=== PATIENT | male | born 1945 | race American Indian/Alaskan Native ===

== ENCOUNTER 2018-03-01 09:53 | Outpatient (CLI) | payer MEDICARE | END 2018-03-01 09:54 | disposition home or self-care (01) | LOC: LAB 09:53 | PROVIDERS: ATTEND Internal Medicine | DX: E87.5 Hyperkalemia (principal); E11.9 Type 2 diabetes mellitus without complications; I10 Essential (primary) hypertension | CPT/HCPCS: 36415; 84132 ==

== ENCOUNTER 2018-10-23 13:47 | Inpatient (IN) | payer MEDICARE ==
--- NOTE | 2018-10-23 14:04 | Event Note ---
ED Screening Note Date of service: 10/23/18 Time: 13:58 ED Screening Note: This is a 73 y.o. M. that presents to the ER with tachycardia and BLE edema. PMH CHF & DM Patient reports SOB and cough occasionally. Denies recent travel out the Country. Patient states he road in the car for 3 hours to [place] for day. He wore compression hose. This initial assessment/diagnostic orders/clinical plan/treatment(s) is/are subject to change based on patients health status, clinical progression and re- assessment by fellow clinical providers in the ED. Further treatment and workup at subsequent clinical providers discretion. Patient/guardian urged not to elope from the ED as their condition may be serious if not clinically assessed and managed. Initial orders include: Labs
[2018-10-23 14:46] LABS: Basophils # (Auto) 0.1 K/mm3 (0.0-0.1); Basophils % (Auto) 0.8 % (0.0-1.8); Eosinophils # (Auto) 0.2 K/mm3 (0.0-0.4); Eosinophils % (Auto) 3.2 % (0.0-4.3); Hematocrit 40.4 % (35.5-45.6); Hemoglobin 13.1 gm/dl (11.8-15.2); Lymphocytes # (Auto) 1.1 K/mm3 (1.2-5.4); Mean Corpuscular HGB Conc 32 % (32-34); Mean Corpuscular Volume 93 fl (84-94); Monocytes # (Auto) 0.5 K/mm3 (0.0-0.8); Monocytes % (Auto) 7.9 % (0.0-7.3); Platelet Count 178 K/mm3 (140-440); Red Blood Count 4.35 M/mm3 (3.65-5.03)
--- NOTE | 2018-10-23 15:05 | Emergency Department Report ---
ED Shortness of Breath HPI - General Chief Complaint: Arrhythmia/Palpitations Stated Complaint: LEG SWOLLEN/ELEVATED HEART RATE Time Seen by Provider: 10/23/18 13:58 Source: patient Mode of arrival: Ambulatory Limitations: No Limitations - History of Present Illness Initial Comments: Patient is 73 years old male with history of congestive heart failure on Lasix 40 mg daily. Patient sent from Dr. Constantino office for evaluation of shortness of breath and cough for the last 3 days. Patient also complaining of bilateral lower extremity swelling. Patient denied any fever, chills or chest pain. MD Complaint: shortness of breath, cough - Related Data Home Medications Medication Instructions Recorded Confirmed Last Taken Metformin HCl [Metformin ER 1,000 mg PO DAILY 01/28/18 02/20/18 02/18/18 Gastric] 1 tab Saxagliptin HCl [Onglyza] 2.5 mg PO QDAY 01/28/18 02/20/18 02/19/18 1 tab Aspirin EC [Halfprin EC] 325 mg PO DAILY 02/20/18 02/20/18 02/19/18 1 tab Carvedilol [Coreg] 3.125 mg PO BID 02/20/18 02/20/18 02/19/18 1 tab Potassium Chloride [K-Dur] 20 meq PO QDAY 02/20/18 02/20/18 02/19/18 1 tab Previous Rx's Medication Instructions Recorded Last Taken Type Apixaban [Eliquis] 5 mg PO BID #60 tablet 02/01/18 02/17/18 Rx 1 tab Furosemide [Furosemide ORAL LIQ] 40 mg PO BID #60 ml 02/01/18 02/19/18 Rx 1 dose Lisinopril [Zestril TAB] 20 mg PO QDAY #30 tablet 02/01/18 02/19/18 Rx 1 tab Allergies Allergy/AdvReac Type Severity Reaction Status Date / Time No Known Allergies Allergy Verified 02/20/18 06:56 ED Review of Systems ROS: Stated complaint: LEG SWOLLEN/ELEVATED HEART RATE Other details as noted in HPI Comment: All other systems reviewed and negative Constitutional: denies: chills, fever Respiratory: cough, orthopnea, shortness of breath, SOB with exertion, SOB at rest. denies: wheezing Cardiovascular: dyspnea on exertion, orthopnea, paroxysmal nocturnal dyspnea. denies: chest pain, palpitations Gastrointestinal: denies: abdominal pain, nausea, vomiting ED Past Medical Hx - Past Medical History Previous Medical History?: Yes Hx Hypertension: Yes Hx CVA: No Hx Heart Attack/AMI: No Hx Congestive Heart Failure: No Hx Diabetes: Yes Hx Deep Vein Thrombosis: Yes Hx Pulmonary Embolism: Yes Hx GERD: No Hx Liver Disease: No Hx Renal Disease: No Hx Sickle Cell Disease: No Hx Arthritis: No Hx Headaches / Migraines: No Hx Seizures: No Hx Kidney Stones: No Hx Psychiatric Treatment: No Hx Asthma: No Hx COPD: No Hx Tuberculosis: No Hx Dementia: No Hx HIV: No Additional medical history: blood clots - Surgical History Past Surgical History?: No Hx Coronary Stent: No Hx Open Heart Surgery: No Hx Pacemaker: No Hx Internal Defibrillator: No Hx Cholecystectomy: No Hx Appendectomy: No Hx Breast Surgery: No - Social History Smoking Status: Never Smoker Substance Use Type: None - Medications Home Medications: Home Medications Medication Instructions Recorded Confirmed Last Taken Type Metformin HCl [Metformin ER 1,000 mg PO DAILY 01/28/18 02/20/18 02/18/18 History Gastric] 1 tab Saxagliptin HCl [Onglyza] 2.5 mg PO QDAY 01/28/18 02/20/18 02/19/18 History 1 tab Apixaban [Eliquis] 5 mg PO BID #60 tablet 02/01/18 02/20/18 02/17/18 Rx 1 tab Furosemide [Furosemide ORAL LIQ] 40 mg PO BID #60 ml 02/01/18 02/20/18 02/19/18 Rx 1 dose Lisinopril [Zestril TAB] 20 mg PO QDAY #30 tablet 02/01/18 02/20/18 02/19/18 Rx 1 tab Aspirin EC [Halfprin EC] 325 mg PO DAILY 02/20/18 02/20/18 02/19/18 History 1 tab Carvedilol [Coreg] 3.125 mg PO BID 02/20/18 02/20/18 02/19/18 History 1 tab Potassium Chloride [K-Dur] 20 meq PO QDAY 02/20/18 02/20/18 02/19/18 History 1 tab ED Physical Exam - General Limitations: No Limitations General appearance: alert, in no apparent distress - Head Head exam: Present: atraumatic, normocephalic, normal inspection - Eye Eye exam: Present: normal appearance, PERRL - ENT ENT exam: Present: normal exam, normal orophraynx, mucous membranes moist - Neck Neck exam: Present: normal inspection, full ROM. Absent: tenderness, meningismus, lymphadenopathy, thyromegaly - Respiratory Respiratory exam: Present: normal lung sounds bilaterally - Cardiovascular Cardiovascular Exam: Present: regular rate, normal rhythm, normal heart sounds - GI/Abdominal GI/Abdominal exam: Present: soft, normal bowel sounds. Absent: distended, tenderness, guarding, rebound, rigid, organomegaly, mass, bruit, pulsatile mass, hernia - Extremities Exam Extremities exam: Present: normal inspection, full ROM, normal capillary refill, pedal edema. Absent: calf tenderness - Back Exam Back exam: Absent: CVA tenderness (R), CVA tenderness (L) - Neurological Exam Neurological exam: Present: alert, oriented X3, CN II-XII intact, normal gait, reflexes normal - Psychiatric Psychiatric exam: Present: normal mood - Skin Skin exam: Present: warm, intact, normal color ED Course Vital Signs 10/23/18 13:58 Temperature 97.3 F L Pulse Rate 81 Respiratory 16 Rate Blood Pressure 117/68 O2 Sat by Pulse 97 Oximetry ED Medical Decision Making - Lab Data Result diagrams: 10/23/18 14:29 10/23/18 14:29 - EKG Data -: EKG Interpreted by [place] EKG shows normal: sinus rhythm Rate: normal - EKG Data Interpretation: no acute changes - Radiology Data Radiology results: report reviewed - Medical Decision Making Patient is 73 years old male with history of congestive heart failure on Lasix 40 mg daily. Patient sent from Dr. Constantino office for evaluation of shortness of breath and cough for the last 3 days. Patient also complaining of bilateral lower extremity swelling. Patient denied any fever, chills or chest pain. Chest x-ray showed bilateral pleural effusion with pulmonary edema. Patient received Lasix 60 IV. I discussed the patient is Dr. Boateng, he agreed to admit the patient to medical service. Critical Care Time: Yes Critical care time in (mins) excluding proc time.: 30 Critical care attestation.: If time is entered above; I have spent that time in minutes in the direct care of this critically ill patient, excluding procedure time. ED Disposition Clinical Impression: Shortness of breath, Acute exacerbation of CHF (congestive heart failure) Disposition: [id number] OP ADMIT IP TO THIS HOSP Is pt being admited?: Yes Condition: Stable
[2018-10-23 15:06] LABS: Albumin 3.8 g/dL (3.9-5); Calcium 8.9 mg/dL (8.4-10.2)
--- NOTE | 2018-10-23 16:01 | XRay Report ---
CHEST 1 VIEW INDICATION: SOB. COMPARISON: 01/28/2018 FINDINGS: Support devices: None. Heart: Enlarged. Pulmonary vasculature: Increased. Lungs/Pleura: Bibasal lung opacities with partial silhouetting of the right hemidiaphragm, silhouetti ng of the left hemidiaphragm and opacification of the costophrenic angles, left greater than right. Additional findings: None. IMPRESSION: 1. CHF with pulmonary venous hypertension and bilateral pleural effusions, left larger than right. 2. Mild bibasal dependent pulmonary edema. Signer Name: Laz Aguirre MD Signed: 10/23/2018 3:57 PM Workstation Name: [id number]
[2018-10-23] MEDS ORDERED: LASIX IV ONE (16:04)
[2018-10-23 17:33] LABS: Chol/HDL Ratio 2.7 %
--- NOTE | 2018-10-23 22:56 | History and Physical Report ---
History of Present Illness Date of examination: 10/23/18 Date of admission: 10/23/18 16:13 Chief complaint: Increasing SOB for 3 days History of present illness: 73-year-old male with history of hypertension type 2 diabetes and congestive heart failure sent from Dr. Constantino's office for evaluation of increasing shortness of breath and cough for the last 3 days. Patient also has bilateral lower extremity swelling. No chest pain. Patient has class IV NYHA symptoms. Patient also has orthopnea. Exercisesexacerbating factor and rest is arelieving factor. No recent travel. No fever or chills.Also complaints of palpitations .No chest pain. Past Medical History Previous Medical History?: Yes Hypertension: Yes Diabetes: Yes Deep Vein Thrombosis: Yes Pulmonary Embolism: Yes Additional medical history: blood clots Surgical History No - Social History Smoking Status: Never Smoker Substance Use Type: None Family History htn - Medications Home Medications: Home Medications Medication Instructions Recorded Confirmed Last Taken Type Metformin HCl [Metformin ER 1,000 mg PO DAILY 01/28/18 02/20/18 02/18/18 History Gastric] 1 tab Saxagliptin HCl [Onglyza] 2.5 mg PO QDAY 01/28/18 02/20/18 02/19/18 History 1 tab Apixaban [Eliquis] 5 mg PO BID #60 tablet 02/01/18 02/20/18 02/17/18 Rx 1 tab Furosemide [Furosemide ORAL LIQ] 40 mg PO BID #60 ml 02/01/18 02/20/18 02/19/18 Rx 1 dose Lisinopril [Zestril TAB] 20 mg PO QDAY #30 tablet 02/01/18 02/20/18 02/19/18 Rx 1 tab Aspirin EC [Halfprin EC] 325 mg PO DAILY 02/20/18 02/20/18 02/19/18 History 1 tab Carvedilol [Coreg] 3.125 mg PO BID 02/20/18 02/20/18 02/19/18 History 1 tab Potassium Chloride [K-Dur] 20 meq PO QDAY 02/20/18 02/20/18 02/19/18 History 1 tab Review of Systems ROS: Stated complaint: LEG SWOLLEN/ELEVATED HEART RATE Other details as noted in HPI Comment: All other systems reviewed and negative Constitutional: denies: chills, fever Respiratory: cough, orthopnea, shortness of breath, SOB with exertion, SOB at rest. denies: wheezing Cardiovascular: dyspnea on exertion, orthopnea, paroxysmal nocturnal dyspnea. denies: chest pain, palpitations Gastrointestinal: denies: abdominal pain, nausea, vomiting Medications and Allergies Allergies Allergy/AdvReac Type Severity Reaction Status Date / Time No Known Allergies Allergy Verified 02/20/18 06:56 Home Medications Medication Instructions Recorded Confirmed Last Taken Type Metformin HCl [Metformin ER 1,000 mg PO DAILY 01/28/18 10/23/18 10/23/18 History Gastric] Saxagliptin HCl [Onglyza] 5 mg PO QDAY 01/28/18 10/23/18 10/23/18 History Apixaban [Eliquis] 5 mg PO BID #60 tablet 02/01/18 10/23/18 10/23/18 Rx Aspirin EC [Halfprin EC] 325 mg PO DAILY 02/20/18 10/23/18 10/23/18 History Potassium Chloride [K-Dur] 20 meq PO QDAY 02/20/18 10/23/18 10/23/18 History Furosemide [Lasix TAB] 40 mg PO BID 10/23/18 10/23/18 10/23/18 History Lisinopril [Zestril] 20 mg PO QDAY 10/23/18 10/23/18 10/23/18 History Pravastatin [Pravachol] 40 mg PO QHS 10/23/18 10/23/18 10/23/18 History glipiZIDE [Glucotrol] 10 mg PO BID 10/23/18 10/23/18 10/23/18 History Exam - Constitutional Vitals: Temp Pulse Resp BP Pulse Ox 97.3 F L 80 18 152/80 98 10/23/18 19:18 10/23/18 19:18 10/23/18 19:18 10/23/18 20:13 10/23/18 20:13 General appearance: Present: mild distress, well-nourished - EENT Eyes: Present: PERRL ENT: hearing intact, clear oral mucosa - Neck Neck: Present: supple, normal ROM - Respiratory Respiratory effort: normal Respiratory: bilateral: CTA, rales - Cardiovascular Heart rate: 76 Rhythm: regular Heart Sounds: Present: S1 & S2. Absent: rub, click - Extremities Extremities: no ischemia, pulses symmetrical, No edema Extremity abnormal: edema (Both lower extremities ) Peripheral Pulses: within normal limits - Abdominal General gastrointestinal: Present: soft, non-tender, non-distended, normal bowel sounds Male genitourinary: Present: normal - Integumentary Integumentary: Present: clear, warm, dry - Musculoskeletal Musculoskeletal: gait normal, strength equal bilaterally - Psychiatric Psychiatric: appropriate mood/affect, intact judgment & insight - Neurologic Neurologic: CNII-XII intact, moves all extremities Results - Labs CBC & Chem 7: 10/24/18 04:20 10/24/18 04:20 Labs: Laboratory Last Values WBC 6.2 K/mm3 (4.5-11.0) 10/23/18 14:29 RBC 4.35 M/mm3 (3.65-5.03) 10/23/18 14:29 Hgb 13.1 gm/dl (11.8-15.2) 10/23/18 14:29 Hct 40.4 % (35.5-45.6) 10/23/18 14:29 MCV 93 fl (84-94) 10/23/18 14:29 MCH 30 pg (28-32) 10/23/18 14:29 MCHC 32 % (32-34) 10/23/18 14:29 RDW 16.0 % (13.2-15.2) H 10/23/18 14:29 Plt Count 178 K/mm3 (140-440) 10/23/18 14:29 Lymph % (Auto) 18.0 % (13.4-35.0) 10/23/18 14:29 [place] % (Auto) 7.9 % (0.0-7.3) H 10/23/18 14:29 Eos % (Auto) 3.2 % (0.0-4.3) 10/23/18 14:29 Baso % (Auto) 0.8 % (0.0-1.8) 10/23/18 14:29 Lymph # 1.1 K/mm3 (1.2-5.4) L 10/23/18 14:29 [place] # 0.5 K/mm3 (0.0-0.8) 10/23/18 14:29 Eos # 0.2 K/mm3 (0.0-0.4) 10/23/18 14:29 Baso # 0.1 K/mm3 (0.0-0.1) 10/23/18 14:29 Seg Neutrophils % 70.1 % (40.0-70.0) H 10/23/18 14:29 Seg Neutrophils # 4.4 K/mm3 (1.8-7.7) 10/23/18 14:29 Sodium 141 mmol/L (137-145) 10/23/18 14:29 Potassium 4.5 mmol/L (3.6-5.0) 10/23/18 14:29 Chloride 101.2 mmol/L (98-107) 10/23/18 14:29 Carbon Dioxide 25 mmol/L (22-30) 10/23/18 14:29 19 mmol/L 10/23/18 14:29 BUN 19 mg/dL (9-20) 10/23/18 14:29 1.5 mg/dL (0.8-1.5) 10/23/18 14:29 Estimated GFR 55 ml/min 10/23/18 14:29 13 % 10/23/18 14:29 Glucose 169 mg/dL (75-100) H 10/23/18 14:29 Calcium 8.9 mg/dL (8.4-10.2) 10/23/18 14:29 1.20 mg/dL (0.1-1.2) 10/23/18 14:29 AST 25 units/L (5-40) 10/23/18 14:29 ALT 31 units/L (7-56) 10/23/18 14:29 86 units/L (35-129) 10/23/18 14:29 0.055 ng/mL (0.00-0.029) H 10/23/18 16:00 NT-Pro-B Natriuret Pep 5260 pg/mL (0-900) H 10/23/18 14:29 6.8 g/dL (6.3-8.2) 10/23/18 14:29 3.8 g/dL (3.9-5) L 10/23/18 14:29 1.3 % 10/23/18 14:29 Triglycerides 114 mg/dL (2-149) 10/23/18 16:00 Cholesterol 92 mg/dL (50-199) 10/23/18 16:00 57 mg/dL (50-130) 10/23/18 16:00 34 mg/dL (40-59) L 10/23/18 16:00 2.70 % 10/23/18 16:00 - Imaging and Cardiology EKG: report reviewed (NSR 76/min) Assessment and Plan Advance Directives: Yes (Full code) VTE prophylaxis?: Chemical - Patient Problems (1) Acute exacerbation of CHF (congestive heart failure) Current Visit: Yes Status: Acute Qualifiers: Heart failure type: combined systolic and diastolic Qualified Code(s): I50.43 - 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 Plan to address problem: Check ECHo IV Lasix 40 mg q12h Daily weights and I/O Cardiology consult (2) Personal history of DVT (deep vein thrombosis) Current Visit: No Status: Chronic Plan to address problem: On Eliquis (3) HTN (hypertension) Current Visit: Yes Status: Chronic Qualifiers: Hypertension type: essential hypertension Qualified Code(s): I10 - Essential (primary) hypertension Plan to address problem: Cont antihypertensives BP q shift and adjust meds if necessary (4) T2DM (type 2 diabetes mellitus) Current Visit: Yes Status: Chronic Qualifiers: Diabetes mellitus fpc insulin use: without fpc use Plan to address problem: Cont oral hypoglycemics Check A1c Insulin coverage for now Adjust meds if necessary (5) DVT prophylaxis Current Visit: Yes Status: Chronic Plan to address problem: Patient on Eliquis and GI prophylaxis
[2018-10-23] MEDS ORDERED: ZOFRAN IV PRN (22:58)
[2018-10-23] MEDS ORDERED: D50W (25GM) Syringe IV PRN (22:58)
[2018-10-23] MEDS ORDERED: PERCOCET 5/325 PO PRN (22:58)
[2018-10-23] MEDS ORDERED: DILAUDID IV PRN (22:58)
[2018-10-23] MEDS ORDERED: REGLAN IV PRN (22:58)
[2018-10-23] MEDS ORDERED: SODIUM CHLORIDE FLUSH SYRINGE 10 ML IV PRN (22:58)
[2018-10-23] MEDS ORDERED: TYLENOL PO PRN (22:58)
[2018-10-23] MEDS: ELIQUIS PO SCH (23:34)
[2018-10-23] MEDS: GLUCOTROL PO SCH (23:34)
[2018-10-23] MEDS: K-DUR PO SCH (23:34)
[2018-10-24] MEDS: TESSALON PERLES PO SCH ×3 (01:00→17:21)
[2018-10-24] MEDS: LASIX IV SCH ×2 (05:03→17:21)
[2018-10-24 05:10] LABS: Basophils % (Auto) 0.7 % (0.0-1.8); Eosinophils # (Auto) 0.2 K/mm3 (0.0-0.4); Eosinophils % (Auto) 2.8 % (0.0-4.3); Hematocrit 37.4 % (35.5-45.6); Hemoglobin 12.3 gm/dl (11.8-15.2); Lymphocytes # (Auto) 1.1 K/mm3 (1.2-5.4); Mean Corpuscular HGB Conc 33 % (32-34); Mean Corpuscular Volume 93 fl (84-94); Monocytes # (Auto) 0.7 K/mm3 (0.0-0.8); Monocytes % (Auto) 12.2 % (0.0-7.3); Platelet Count 153 K/mm3 (140-440); Red Blood Count 4.03 M/mm3 (3.65-5.03); Red Cell Distribution Width 15.5 % (13.2-15.2)
[2018-10-24 05:36] LABS: Albumin 3.5 g/dL (3.9-5); Calcium 8.5 mg/dL (8.4-10.2)
[2018-10-24] MEDS: HumaLOG SUB-Q SCH ×4 (08:33→22:00)
[2018-10-24] MEDS: ASPIRIN PO SCH (09:34)
[2018-10-24] MEDS: PEPCID PO SCH ×2 (09:38→21:59)
[2018-10-24] MEDS: GLUCOTROL PO SCH ×2 (09:38→17:21)
[2018-10-24] MEDS: ELIQUIS PO SCH ×2 (09:39→21:59)
[2018-10-24] MEDS: K-DUR PO SCH ×2 (09:40→21:59)
[2018-10-24] MEDS: SODIUM CHLORIDE FLUSH SYRINGE 10 ML IV SCH (09:42)
[2018-10-24] MEDS ORDERED: NON-FORMULARY (Saxagliptin Hcl [Onglyza] 5 MG) PO SCH (10:00)
[2018-10-24] MEDS ORDERED: ZESTRIL PO SCH (10:00)
--- NOTE | 2018-10-24 10:49 | Consultation ---
<MEAGHAN IRVIN - Last Filed: 10/24/18 10:45> History of Present Illness Consult date: 10/24/18 Consult reason: congestive heart failure History of present illness: This is a frail, 73-year old male, with a history of nonischemic cardiomyopathy. A cardiac cath done early this year reports no significant coronary artery disease, ejection fraction 20-25%. As an outpatient, future considerations for an ICD is being evaluated. He also has a history of hypertension, diabetes and pulmonary embolism. He is on eliquis for oral anticoagulation therapy as an outpatient. Patient presented with shortness of breath, lower extremity edema, admitted with CHF exacerbation. Initial workup with a chest x-ray reports interstitial edema with bilateral pleural effusions, left greater than right. Patient denies chest pain. Reports compliance with his medications. ECG is normal sinus rhythm. A cardiac consultation has been requested for CHF management. Medications and Allergies Allergies Allergy/AdvReac Type Severity Reaction Status Date / Time No Known Allergies Allergy Verified 02/20/18 06:56 Home Medications Medication Instructions Recorded Confirmed Last Taken Type Metformin HCl [Metformin ER 1,000 mg PO DAILY 01/28/18 10/23/18 10/23/18 History Gastric] Saxagliptin HCl [Onglyza] 5 mg PO QDAY 01/28/18 10/23/18 10/23/18 History Apixaban [Eliquis] 5 mg PO BID #60 tablet 02/01/18 10/23/18 10/23/18 Rx Aspirin EC [Halfprin EC] 325 mg PO DAILY 02/20/18 10/23/18 10/23/18 History Potassium Chloride [K-Dur] 20 meq PO QDAY 02/20/18 10/23/18 10/23/18 History Furosemide [Lasix TAB] 40 mg PO BID 10/23/18 10/23/18 10/23/18 History Lisinopril [Zestril] 20 mg PO QDAY 10/23/18 10/23/18 10/23/18 History Pravastatin [Pravachol] 40 mg PO QHS 10/23/18 10/23/18 10/23/18 History glipiZIDE [Glucotrol] 10 mg PO BID 10/23/18 10/23/18 10/23/18 History Active Meds: Active Medications Acetaminophen (Tylenol) 650 mg PO Q4H PRN PRN Reason: Pain MILD(1-3)/Fever >100.5/BLEVINS Apixaban (Eliquis) 5 mg PO BID [facility]; Protocol Last Admin: 10/24/18 09:39 Dose: 5 mg Documented by: Aspirin (Aspirin) 325 mg PO DAILY [facility] Last Admin: 10/24/18 09:34 Dose: 325 mg Documented by: Benzonatate (Tessalon Perles) 100 mg PO Q8H [facility] Last Admin: 10/24/18 09:42 Dose: 100 mg Documented by: Dextrose (D50w (25gm) Syringe) 50 ml IV PRN PRN PRN Reason: Hypoglycemia Famotidine (Pepcid) 20 mg PO BID [facility] Last Admin: 10/24/18 09:38 Dose: 20 mg Documented by: Furosemide (Lasix) 40 mg IV 0600,1800 [facility] Last Admin: 10/24/18 05:03 Dose: 40 mg Documented by: Glipizide (Glucotrol) 10 mg PO BIDDIAB [facility] Last Admin: 10/24/18 09:38 Dose: 10 mg Documented by: Hydromorphone HCl (Dilaudid) 0.5 mg IV Q3H PRN PRN Reason: Pain , Severe (7-10) Insulin Human Lispro (Humalog) 0 unit SUB-Q ACHS [facility]; Protocol Last Admin: 10/24/18 08:33 Dose: Not Given Documented by: Lisinopril (Zestril) 20 mg PO QDAY [facility] Metoclopramide HCl (Reglan) 10 mg IV Q6H PRN PRN Reason: Nausea And Vomiting Miscellaneous Medication (Metformin Hcl [Metformin Er Gastric]) 1,000 mg PO DAILY [facility] Miscellaneous Medication (Saxagliptin Hcl [Onglyza]) 5 mg PO QDAY [facility] Ondansetron HCl (Zofran) 4 mg IV Q8H PRN PRN Reason: Nausea And Vomiting Oxycodone/Acetaminophen (Percocet 5/325) 1 tab PO Q6H PRN PRN Reason: Pain, Moderate (4-6) Potassium Chloride (K-Dur) 20 meq PO Q12HR [facility] Last Admin: 10/24/18 09:40 Dose: 20 meq Documented by: Pravastatin Sodium (Pravachol) 40 mg PO QHS [facility] Sodium Chloride (Sodium Chloride Flush Syringe 10 Ml) 10 ml IV BID [facility] Last Admin: 10/24/18 09:42 Dose: 10 ml Documented by: Sodium Chloride (Sodium Chloride Flush Syringe 10 Ml) 10 ml IV PRN PRN PRN Reason: LINE FLUSH Physical Examination Vital Signs Temp Pulse Resp BP Pulse Ox 97.3 F L 81 16 117/68 97 10/23/18 13:58 10/23/18 13:58 10/23/18 13:58 10/23/18 13:58 10/23/18 13:58 General appearance: no acute distress HEENT: Positive: PERRL Neck: Positive: trachea midline Cardiac: Positive: Reg Rate and Rhythm Lungs: Positive: Decreased Breath Sounds Neuro: Positive: Grossly Intact Extremities: Present: +3 Edema Results 10/24/18 04:20 10/24/18 04:20 Cardiac Enzymes 10/23/18 10/24/18 Range/Units 14:29 04:20 AST 25 22 (5-40) units/L Lipids 10/23/18 Range/Units 16:00 Triglycerides 114 (2-149) mg/dL Cholesterol 92 (50-199) mg/dL HDL Cholesterol 34 L (40-59) mg/dL Cholesterol/HDL Ratio 2.70 % CBC 10/23/18 10/24/18 Range/Units 14:29 04:20 WBC 6.2 5.9 (4.5-11.0) K/mm3 RBC 4.35 4.03 (3.65-5.03) M/mm3 Hgb 13.1 12.3 (11.8-15.2) gm/dl Hct 40.4 37.4 (35.5-45.6) % Plt Count 178 153 (140-440) K/mm3 Lymph # 1.1 L 1.1 L (1.2-5.4) K/mm3 [place] # 0.5 0.7 (0.0-0.8) K/mm3 Eos # 0.2 0.2 (0.0-0.4) K/mm3 Baso # 0.1 0.0 (0.0-0.1) K/mm3 Comprehensive Metabolic Panel 10/23/18 10/24/18 Range/Units 14:29 04:20 Sodium 141 143 (137-145) mmol/L Potassium 4.5 4.0 (3.6-5.0) mmol/L Chloride 101.2 101.3 (98-107) mmol/L Carbon Dioxide 25 27 (22-30) mmol/L BUN 19 20 (9-20) mg/dL Creatinine 1.5 1.5 (0.8-1.5) mg/dL Glucose 169 H 104 H (75-100) mg/dL Calcium 8.9 8.5 (8.4-10.2) mg/dL AST 25 22 (5-40) units/L ALT 31 26 (7-56) units/L Alkaline Phosphatase 86 78 (35-129) units/L Total Protein 6.8 6.1 L (6.3-8.2) g/dL Albumin 3.8 L 3.5 L (3.9-5) g/dL Assessment and Plan Acute systolic heart failure Hx of Nonischemic cardiomyopathy [facility] 02/2018 -no significant CAD, EF 20-25% Hx of PE -on eliquis for oral anticoagulation Hypertension Diabetes Continue medical therapy for systolic heart failure including IV diuretics. Monitor labs daily. <NEERAJ SALES - Last Filed: 10/24/18 14:44> Medications and Allergies Active Meds: Active Medications Acetaminophen (Tylenol) 650 mg PO Q4H PRN PRN Reason: Pain MILD(1-3)/Fever >100.5/BLEVINS Apixaban (Eliquis) 5 mg PO BID [facility]; Protocol Last Admin: 10/24/18 09:39 Dose: 5 mg Documented by: Aspirin (Aspirin) 325 mg PO DAILY [facility] Last Admin: 10/24/18 09:34 Dose: 325 mg Documented by: Benzonatate (Tessalon Perles) 100 mg PO Q8H [facility] Last Admin: 10/24/18 09:42 Dose: 100 mg Documented by: Dextrose (D50w (25gm) Syringe) 50 ml IV PRN PRN PRN Reason: Hypoglycemia Famotidine (Pepcid) 20 mg PO BID [facility] Last Admin: 10/24/18 09:38 Dose: 20 mg Documented by: Furosemide (Lasix) 40 mg IV 0600,1800 [facility] Last Admin: 10/24/18 05:03 Dose: 40 mg Documented by: Glipizide (Glucotrol) 10 mg PO BIDDIAB [facility] Last Admin: 10/24/18 09:38 Dose: 10 mg Documented by: Hydromorphone HCl (Dilaudid) 0.5 mg IV Q3H PRN PRN Reason: Pain , Severe (7-10) Insulin Human Lispro (Humalog) 0 unit SUB-Q ACHS [facility]; Protocol Last Admin: 10/24/18 08:33 Dose: Not Given Documented by: Lisinopril (Zestril) 20 mg PO QDAY [facility] Metoclopramide HCl (Reglan) 10 mg IV Q6H PRN PRN Reason: Nausea And Vomiting Miscellaneous Medication (Metformin Hcl [Metformin Er Gastric]) 1,000 mg PO DAILY [facility] Miscellaneous Medication (Saxagliptin Hcl [Onglyza]) 5 mg PO QDAY [facility] Ondansetron HCl (Zofran) 4 mg IV Q8H PRN PRN Reason: Nausea And Vomiting Oxycodone/Acetaminophen (Percocet 5/325) 1 tab PO Q6H PRN PRN Reason: Pain, Moderate (4-6) Potassium Chloride (K-Dur) 20 meq PO Q12HR [facility] Last Admin: 10/24/18 09:40 Dose: 20 meq Documented by: Pravastatin Sodium (Pravachol) 40 mg PO QHS [facility] Sodium Chloride (Sodium Chloride Flush Syringe 10 Ml) 10 ml IV BID [facility] Last Admin: 10/24/18 09:42 Dose: 10 ml Documented by: Sodium Chloride (Sodium Chloride Flush Syringe 10 Ml) 10 ml IV PRN PRN PRN Reason: LINE FLUSH Physical Examination Vital Signs Temp Pulse Resp BP Pulse Ox 97.3 F L 81 16 117/68 97 10/23/18 13:58 10/23/18 13:58 10/23/18 13:58 10/23/18 13:58 10/23/18 13:58 Results 10/24/18 04:20 10/24/18 04:20 Cardiac Enzymes 10/23/18 10/24/18 Range/Units 14:29 04:20 AST 25 22 (5-40) units/L Lipids 10/23/18 Range/Units 16:00 Triglycerides 114 (2-149) mg/dL Cholesterol 92 (50-199) mg/dL HDL Cholesterol 34 L (40-59) mg/dL Cholesterol/HDL Ratio 2.70 % CBC 10/23/18 10/24/18 Range/Units 14:29 04:20 WBC 6.2 5.9 (4.5-11.0) K/mm3 RBC 4.35 4.03 (3.65-5.03) M/mm3 Hgb 13.1 12.3 (11.8-15.2) gm/dl Hct 40.4 37.4 (35.5-45.6) % Plt Count 178 153 (140-440) K/mm3 Lymph # 1.1 L 1.1 L (1.2-5.4) K/mm3 [place] # 0.5 0.7 (0.0-0.8) K/mm3 Eos # 0.2 0.2 (0.0-0.4) K/mm3 Baso # 0.1 0.0 (0.0-0.1) K/mm3 Comprehensive Metabolic Panel 10/23/18 10/24/18 Range/Units 14:29 04:20 Sodium 141 143 (137-145) mmol/L Potassium 4.5 4.0 (3.6-5.0) mmol/L Chloride 101.2 101.3 (98-107) mmol/L Carbon Dioxide 25 27 (22-30) mmol/L BUN 19 20 (9-20) mg/dL Creatinine 1.5 1.5 (0.8-1.5) mg/dL Glucose 169 H 104 H (75-100) mg/dL Calcium 8.9 8.5 (8.4-10.2) mg/dL AST 25 22 (5-40) units/L ALT 31 26 (7-56) units/L Alkaline Phosphatase 86 78 (35-129) units/L Total Protein 6.8 6.1 L (6.3-8.2) g/dL Albumin 3.8 L 3.5 L (3.9-5) g/dL Assessment and Plan I have seen and evaluated the patient and agree with the assessment and plan. Patient has a history of Non-ischemic cardiomyopathy by [facility] 02/2018 that showed no significant CAD with an EF 20-25%. Patient presents with volume overload. Recommend continued diuresis with IV furosemide. Continue goal directed medical therapy and maximize as blood pressure allows. The patient also has a history of PE -continue eliquis for oral anticoagulation
--- NOTE | 2018-10-24 12:40 | Progress Note ---
Assessment and Plan Assessment and plan: (1) Acute chronic systolic exacerbation of CHF (congestive heart failure) Check ECHo, his previous echo showed ejection fraction of 20-25%, patient may need dilation for AICD IV Lasix 40 mg q12h Daily weights and I/O Cardiology consult (2) Personal history of DVT (deep vein thrombosis) On Eliquis (3) HTN (hypertension) -Blood pressure is controlled, continue lisinopril (4) T2DM (type 2 diabetes mellitus) Cont oral hypoglycemics A1c is 8.1 Insulin coverage for now Adjust meds if necessary (5) DVT prophylaxis Patient on Eliquis and GI prophylaxis Disposition; per cardiology. History Interval history: Patient was seen and evaluated this morning, patient's shortness of breath is getting better. Hospitalist Physical - Physical exam Narrative exam: Not in cardiopulmonary distress. The patient appeared well nourished and normally developed. Vital signs as documented. Head exam is unremarkable. No scleral icterus . Neck is without jugular venous distension, thyromegaly, or carotid bruits. Lungs are clear to auscultation. Cardiac exam reveals regular rate and Rhythm. First and second heart sounds normal. No murmurs, rubs or gallops. Abdominal exam reveals normal bowel sounds, no masses, no organomegaly and no aortic enlargement. Extremities +2 pedal and pretibial edema extending to the knee. [employer]: Alert and oriented 3. No focal weakness. - Constitutional Vitals: Temp Pulse Resp BP Pulse Ox 98.2 F 76 14 124/72 96 10/24/18 08:04 10/24/18 08:04 10/24/18 08:04 10/24/18 08:04 10/24/18 08:04 General appearance: Present: no acute distress Results - Labs CBC & Chem 7: 10/24/18 04:20 10/24/18 04:20 Labs: Laboratory Last Values WBC 5.9 K/mm3 (4.5-11.0) 10/24/18 04:20 RBC 4.03 M/mm3 (3.65-5.03) 10/24/18 04:20 Hgb 12.3 gm/dl (11.8-15.2) 10/24/18 04:20 Hct 37.4 % (35.5-45.6) 10/24/18 04:20 MCV 93 fl (84-94) 10/24/18 04:20 MCH 31 pg (28-32) 10/24/18 04:20 MCHC 33 % (32-34) 10/24/18 04:20 RDW 15.5 % (13.2-15.2) H 10/24/18 04:20 Plt Count 153 K/mm3 (140-440) 10/24/18 04:20 Lymph % (Auto) 19.0 % (13.4-35.0) 10/24/18 04:20 [place] % (Auto) 12.2 % (0.0-7.3) H 10/24/18 04:20 Eos % (Auto) 2.8 % (0.0-4.3) 10/24/18 04:20 Baso % (Auto) 0.7 % (0.0-1.8) 10/24/18 04:20 Lymph # 1.1 K/mm3 (1.2-5.4) L 10/24/18 04:20 [place] # 0.7 K/mm3 (0.0-0.8) 10/24/18 04:20 Eos # 0.2 K/mm3 (0.0-0.4) 10/24/18 04:20 Baso # 0.0 K/mm3 (0.0-0.1) 10/24/18 04:20 Seg Neutrophils % 65.3 % (40.0-70.0) 10/24/18 04:20 Seg Neutrophils # 3.8 K/mm3 (1.8-7.7) 10/24/18 04:20 Sodium 143 mmol/L (137-145) 10/24/18 04:20 Potassium 4.0 mmol/L (3.6-5.0) 10/24/18 04:20 Chloride 101.3 mmol/L (98-107) 10/24/18 04:20 Carbon Dioxide 27 mmol/L (22-30) 10/24/18 04:20 19 mmol/L 10/24/18 04:20 BUN 20 mg/dL (9-20) 10/24/18 04:20 1.5 mg/dL (0.8-1.5) 10/24/18 04:20 Estimated GFR 55 ml/min 10/24/18 04:20 13 % 10/24/18 04:20 Glucose 104 mg/dL (75-100) H 10/24/18 04:20 POC Glucose 85 (70-105) 10/24/18 08:10 8.1 % (4-6) H 10/23/18 23:09 Calcium 8.5 mg/dL (8.4-10.2) 10/24/18 04:20 0.80 mg/dL (0.1-1.2) 10/24/18 04:20 AST 22 units/L (5-40) 10/24/18 04:20 ALT 26 units/L (7-56) 10/24/18 04:20 78 units/L (35-129) 10/24/18 04:20 0.055 ng/mL (0.00-0.029) H 10/23/18 16:00 NT-Pro-B Natriuret Pep 5260 pg/mL (0-900) H 10/23/18 14:29 6.1 g/dL (6.3-8.2) L 10/24/18 04:20 3.5 g/dL (3.9-5) L 10/24/18 04:20 1.3 % 10/24/18 04:20 Triglycerides 114 mg/dL (2-149) 10/23/18 16:00 Cholesterol 92 mg/dL (50-199) 10/23/18 16:00 57 mg/dL (50-130) 10/23/18 16:00 34 mg/dL (40-59) L 10/23/18 16:00 2.70 % 10/23/18 16:00 Active Medications - Current Medications Current Medications: Generic Name Dose Route Start Last Admin Trade Name Freq PRN Reason Stop Dose Admin Acetaminophen 650 mg 10/23/18 22:58 Tylenol PO Q4H PRN Pain MILD(1-3)/Fever >100.5/BLEVINS Apixaban 5 mg 10/23/18 23:00 10/24/18 09:39 Eliquis PO 5 mg BID ESPER[facility] Administration Protocol Aspirin 325 mg 10/24/18 10:00 10/24/18 09:34 Aspirin PO 325 mg DAILY [facility] Administration Benzonatate 100 mg 10/24/18 00:00 10/24/18 09:42 Tessalon Perles PO 100 mg Q8H [facility] Administration Dextrose 50 ml 10/23/18 22:58 D50w (25gm) Syringe IV PRN PRN Hypoglycemia Famotidine 20 mg 10/24/18 10:00 10/24/18 09:38 Pepcid PO 20 mg BID [facility] Administration Furosemide 40 mg 10/24/18 06:00 10/24/18 05:03 Lasix IV 40 mg 0600,1800 [facility] Administration Glipizide 10 mg 10/23/18 23:00 10/24/18 09:38 Glucotrol PO 10 mg BIDDIAB [facility] Administration Hydromorphone HCl 0.5 mg 10/23/18 22:58 Dilaudid IV Q3H PRN Pain , Severe (7-10) Insulin Human Lispro 0 unit 10/24/18 07:30 10/24/18 08:33 Humalog SUB-Q Not Given ACHS [facility] Protocol Lisinopril 20 mg 10/24/18 10:00 Zestril PO QDAY [facility] Metoclopramide HCl 10 mg 10/23/18 22:58 Reglan IV Q6H PRN Nausea And Vomiting Miscellaneous Medication 1,000 mg 10/24/18 10:00 Metformin Hcl [Metformin Er Gastric] PO DAILY [facility] Miscellaneous Medication 5 mg 10/24/18 10:00 Saxagliptin Hcl [Onglyza] PO QDAY [facility] Ondansetron HCl 4 mg 10/23/18 22:58 Zofran IV Q8H PRN Nausea And Vomiting Oxycodone/Acetaminophen 1 tab 10/23/18 22:58 Percocet 5/325 PO Q6H PRN Pain, Moderate (4-6) Potassium Chloride 20 meq 10/23/18 23:00 10/24/18 09:40 K-Dur PO 20 meq Q12HR [facility] Administration Pravastatin Sodium 40 mg 10/24/18 22:00 Pravachol PO QHS [facility] Sodium Chloride 10 ml 10/24/18 10:00 10/24/18 09:42 Sodium Chloride Flush Syringe 10 Ml IV 10 ml BID [facility] Administration Sodium Chloride 10 ml 10/23/18 22:58 Sodium Chloride Flush Syringe 10 Ml IV PRN PRN LINE FLUSH
[2018-10-24 18:57] LABS: Creatinine,Urine 17.7 mg/dL (0.1-20.0); Microalbumin/Creatinine Ratio 90.3 ug/mg
[2018-10-24] MEDS: PRAVACHOL PO SCH (21:59)
[2018-10-25] MEDS: SODIUM CHLORIDE FLUSH SYRINGE 10 ML IV SCH ×3 (00:49→22:59)
[2018-10-25] MEDS: TESSALON PERLES PO SCH ×3 (00:49→17:11)
[2018-10-25 04:34] LABS: Calcium 8.3 mg/dL (8.4-10.2)
[2018-10-25] MEDS: LASIX IV SCH ×2 (05:32→17:19)
--- NOTE | 2018-10-25 09:06 | Progress Note ---
Assessment and Plan Acute systolic heart failure Hx of Nonischemic cardiomyopathy [facility] 02/2018 -no significant CAD, EF 20-25% Hx of PE -on eliquis for oral anticoagulation Hypertension Diabetes Continue medical therapy for systolic heart failure. Advised sodium/fluid restriction. Subjective Date of service: 10/25/18 Interval history: Patient admits he is diuresing well. Sinus rhythm on telemetry. Objective Vital Signs Temp Pulse Pulse Resp BP Pulse Ox 10/25/18 03:57 98.8 F 73 19 133/84 99 10/24/18 23:06 97.7 F 80 19 137/75 99 10/24/18 19:52 97.7 F 88 19 122/87 98 10/24/18 19:25 85 10/24/18 18:00 77 20 99 10/24/18 17:27 97.5 F L 69 16 125/78 98 10/24/18 14:47 97.4 F L 77 16 119/74 97 - Physical Examination General: No Apparent Distress HEENT: Positive: PERRL Neck: Positive: trachea midline Cardiac: Positive: Reg Rate and Rhythm Lungs: Positive: Decreased Breath Sounds Neuro: Positive: Grossly Intact Extremities: Present: +3 Edema - Labs and Meds Comprehensive Metabolic Panel 10/25/18 Range/Units 03:40 Sodium 141 (137-145) mmol/L Potassium 4.1 (3.6-5.0) mmol/L Chloride 100.7 (98-107) mmol/L Carbon Dioxide 28 (22-30) mmol/L BUN 19 (9-20) mg/dL Creatinine 1.4 (0.8-1.5) mg/dL Glucose 106 H (75-100) mg/dL Calcium 8.3 L (8.4-10.2) mg/dL
[2018-10-25] MEDS: PEPCID PO SCH ×2 (10:08→23:00)
[2018-10-25] MEDS: ELIQUIS PO SCH ×2 (10:08→23:00)
[2018-10-25] MEDS: ASPIRIN PO SCH (10:08)
[2018-10-25] MEDS: HumaLOG SUB-Q SCH ×4 (10:09→23:10)
[2018-10-25] MEDS: K-DUR PO SCH ×2 (10:09→23:00)
--- NOTE | 2018-10-25 10:28 | Progress Note ---
Assessment and Plan Assessment and plan: (1) Acute chronic systolic exacerbation of CHF (congestive heart failure) his previous echo showed ejection fraction of 20-25%, patient may need dilation for AICD Echo canceled because of patient has recent echo IV Lasix 40 mg q12h Daily weights and I/O Cardiology consult (2) Personal history of DVT (deep vein thrombosis) On Eliquis (3) HTN (hypertension) -Blood pressure is controlled, continue lisinopril (4) T2DM (type 2 diabetes mellitus) Cont oral hypoglycemics A1c is 8.1 Insulin coverage for now Adjust meds if necessary (5) DVT prophylaxis Patient on Eliquis and GI prophylaxis Disposition; per cardiology. History Interval history: Patient was seen and evaluated this morning, patient's shortness of breath is getting better. Hospitalist Physical - Physical exam Narrative exam: Not in cardiopulmonary distress. The patient appeared well nourished and normally developed. Vital signs as documented. Head exam is unremarkable. No scleral icterus . Neck is without jugular venous distension, thyromegaly, or carotid bruits. Lungs are clear to auscultation. Cardiac exam reveals regular rate and Rhythm. First and second heart sounds normal. No murmurs, rubs or gallops. Abdominal exam reveals normal bowel sounds, no masses, no organomegaly and no aortic enlargement. Extremities +2 pedal and pretibial edema extending to the knee. 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 No focal weakness. - Constitutional Vitals: Temp Pulse Resp BP Pulse Ox 97.8 F 79 20 124/72 98 10/25/18 09:43 10/25/18 09:43 10/25/18 09:43 10/25/18 09:43 10/25/18 09:43 General appearance: Present: no acute distress Results - Labs CBC & Chem 7: 10/24/18 04:20 10/25/18 03:40 Labs: Laboratory Last Values WBC 5.9 K/mm3 (4.5-11.0) 10/24/18 04:20 RBC 4.03 M/mm3 (3.65-5.03) 10/24/18 04:20 Hgb 12.3 gm/dl (11.8-15.2) 10/24/18 04:20 Hct 37.4 % (35.5-45.6) 10/24/18 04:20 MCV 93 fl (84-94) 10/24/18 04:20 MCH 31 pg (28-32) 10/24/18 04:20 MCHC 33 % (32-34) 10/24/18 04:20 RDW 15.5 % (13.2-15.2) H 10/24/18 04:20 Plt Count 153 K/mm3 (140-440) 10/24/18 04:20 Lymph % (Auto) 19.0 % (13.4-35.0) 10/24/18 04:20 [place] % (Auto) 12.2 % (0.0-7.3) H 10/24/18 04:20 Eos % (Auto) 2.8 % (0.0-4.3) 10/24/18 04:20 Baso % (Auto) 0.7 % (0.0-1.8) 10/24/18 04:20 Lymph # 1.1 K/mm3 (1.2-5.4) L 10/24/18 04:20 [place] # 0.7 K/mm3 (0.0-0.8) 10/24/18 04:20 Eos # 0.2 K/mm3 (0.0-0.4) 10/24/18 04:20 Baso # 0.0 K/mm3 (0.0-0.1) 10/24/18 04:20 Seg Neutrophils % 65.3 % (40.0-70.0) 10/24/18 04:20 Seg Neutrophils # 3.8 K/mm3 (1.8-7.7) 10/24/18 04:20 Sodium 141 mmol/L (137-145) 10/25/18 03:40 Potassium 4.1 mmol/L (3.6-5.0) 10/25/18 03:40 Chloride 100.7 mmol/L (98-107) 10/25/18 03:40 Carbon Dioxide 28 mmol/L (22-30) 10/25/18 03:40 16 mmol/L 10/25/18 03:40 BUN 19 mg/dL (9-20) 10/25/18 03:40 1.4 mg/dL (0.8-1.5) 10/25/18 03:40 Estimated GFR 60 ml/min 10/25/18 03:40 14 % 10/25/18 03:40 Glucose 106 mg/dL (75-100) H 10/25/18 03:40 POC Glucose 87 (70-105) 10/25/18 07:31 8.1 % (4-6) H 10/23/18 23:09 Calcium 8.3 mg/dL (8.4-10.2) L 10/25/18 03:40 0.80 mg/dL (0.1-1.2) 10/24/18 04:20 AST 22 units/L (5-40) 10/24/18 04:20 ALT 26 units/L (7-56) 10/24/18 04:20 78 units/L (35-129) 10/24/18 04:20 0.055 ng/mL (0.00-0.029) H 10/23/18 16:00 NT-Pro-B Natriuret Pep 5260 pg/mL (0-900) H 10/23/18 14:29 6.1 g/dL (6.3-8.2) L 10/24/18 04:20 3.5 g/dL (3.9-5) L 10/24/18 04:20 1.3 % 10/24/18 04:20 Triglycerides 114 mg/dL (2-149) 10/23/18 16:00 Cholesterol 92 mg/dL (50-199) 10/23/18 16:00 57 mg/dL (50-130) 10/23/18 16:00 34 mg/dL (40-59) L 10/23/18 16:00 2.70 % 10/23/18 16:00 17.7 mg/dL (0.1-20.0) 10/23/18 Unknown 1.6 mg/dL (0.1-34.0) 10/23/18 Unknown Microalb/Creat Ratio 90.3 ug/mg 10/23/18 Unknown Active Medications - Current Medications Current Medications: Generic Name Dose Route Start Last Admin Trade Name Freq PRN Reason Stop Dose Admin Acetaminophen 650 mg 10/23/18 22:58 Tylenol PO Q4H PRN Pain MILD(1-3)/Fever >100.5/BLEVINS Apixaban 5 mg 10/23/18 23:00 10/25/18 10:08 Eliquis PO 5 mg BID ESPERANZA Administration Protocol Aspirin 325 mg 10/24/18 10:00 10/25/18 10:08 Aspirin PO 325 mg DAILY ESPERANZA Administration Benzonatate 100 mg 10/24/18 00:00 10/25/18 00:49 Tessalon Perles PO 100 mg Q8H ESPERANZA Administration Dextrose 50 ml 10/23/18 22:58 D50w (25gm) Syringe IV PRN PRN Hypoglycemia Famotidine 20 mg 10/24/18 10:00 10/25/18 10:08 Pepcid PO 20 mg BID ESPERANZA Administration Furosemide 40 mg 10/24/18 06:00 10/25/18 05:32 Lasix IV 40 mg 0600,1800 ESPERANZA Administration Glipizide 10 mg 10/23/18 23:00 10/24/18 17:21 Glucotrol PO 10 mg BIDDIAB [facility] Administration Hydromorphone HCl 0.5 mg 10/23/18 22:58 Dilaudid IV Q3H PRN Pain , Severe (7-10) Insulin Human Lispro 0 unit 10/24/18 07:30 10/25/18 10:09 Humalog SUB-Q Not Given ACHS [facility] Protocol Metformin HCl 1,000 mg 10/25/18 08:00 Glucophage Xr PO QDDIAB [facility] Metoclopramide HCl 10 mg 10/23/18 22:58 Reglan IV Q6H PRN Nausea And Vomiting Miscellaneous Medication 5 mg 10/24/18 10:00 Saxagliptin Hcl [Onglyza] PO QDAY [facility] Ondansetron HCl 4 mg 10/23/18 22:58 Zofran IV Q8H PRN Nausea And Vomiting Oxycodone/Acetaminophen 1 tab 10/23/18 22:58 Percocet 5/325 PO Q6H PRN Pain, Moderate (4-6) Potassium Chloride 20 meq 10/23/18 23:00 10/25/18 10:09 K-Dur PO 20 meq Q12HR ESPERANZA Administration Pravastatin Sodium 40 mg 10/24/18 22:00 10/24/18 21:59 Pravachol PO 40 mg QHS ESPERANZA Administration Sodium Chloride 10 ml 10/24/18 10:00 10/25/18 00:49 Sodium Chloride Flush Syringe 10 Ml IV 10 ml BID ESPERANZA Administration Sodium Chloride 10 ml 10/23/18 22:58 Sodium Chloride Flush Syringe 10 Ml IV PRN PRN LINE FLUSH Nutrition/Malnutrition Assess - Dietary Evaluation Nutrition/Malnutrition Findings: Nutrition Notes Start: 10/24/18 11:02 Freq: Status: Active Protocol: Document 10/24/18 11:03 RS (Rec: 10/24/18 13:16 RS [id number]) Co-Sign 10/24/18 11:03 RM Nutrition Notes Need for Assessment generated from: agricultural consultant,Education Initial or Follow up Assessment Current Diagnosis Diabetes,Hypertension,Heart Failure Other Pertinent Diagnosis 2+ pitting edema bilat LE Current Diet Cardiac/Consistent CHO Labs/Tests Glu: 104 A1c: 8.1 Pertinent Medications Lasix Height 6 ft 2 in Weight 85.7 kg [place] Body Weight (kg) 86.36 BMI 24.3 Weight Status Appropriate Subjective/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 Pt been diagnosed with DM for 20 years. Pt has recieved diabetes education from his personal RD. Pt reports his A1c is usually 9% and does not take insulin regularly. Pt verbalizes conscientious about eating CHO and is mindful of BG spikes. Pt reports appetite is good but only eating 25% of his meals because he dislikes the food. Noted preferences. Percent of energy/protein needs met: 23%/24% Burn Absent Trauma Absent GI Symptoms None Food Allergy No Current % PO Poor (25-49%) Minimum of two criteria No #1 Nutrition Diagnosis Inadequate oral intake Etiology food preferences As Evidenced by Signs and Symptoms eating 25% of meals Is patient on ventilator? No Is Patient Ambulatory and/or Out of Bed Yes REE-([facility]-ambulatory/OOB) [ 0320.595 [id number]] Calculation Used for Recommendations [facility] Additional Notes Pro needs: 1.0-1.2 86-103/day Fluid needs: 1.5-1.9L/day Nutrition Intervention Change Diet Order: Continue diet Add Supplement/Snack (indicate name/kcal Glucerna Chocolate daily /protein ) Provides kCal: 220 Provides Protein (gm) 10 Teaching Recipient Patient,Significant Other Learning Readiness Good Teaching Methods Discussion,Handout Response to Teaching Verbalize understanding Education Handouts Provided Eat Right Pro carb counting handout Barriers to Learning No Barriers RD phone number provided No Patient aware of follow up options Yes Goal #1 Meet >75% of kcal and pro needs via PO/ONS intake Anticipated Discharge Needs: Cardiac/consistent CHO diet Follow-Up By: 10/26/18 Additional Comments F/U for PO/ONS intake and changes in food preference
[2018-10-25] MEDS: GLUCOPHAGE XR PO SCH (12:42)
[2018-10-25] MEDS: GLUCOTROL PO SCH ×2 (12:42→17:12)
[2018-10-25] MEDS: PRAVACHOL PO SCH (23:00)
[2018-10-26] MEDS: TESSALON PERLES PO SCH ×2 (05:11→09:40)
[2018-10-26 05:50] VITALS: BP 121/78
[2018-10-26 05:51] LABS: Calcium 8.4 mg/dL (8.4-10.2)
[2018-10-26] MEDS: LASIX IV SCH (05:53)
[2018-10-26] MEDS ORDERED: ASPIRIN PO SCH (08:16)
[2018-10-26] MEDS: HumaLOG SUB-Q SCH ×4 (08:27→15:55)
[2018-10-26] MEDS: GLUCOPHAGE XR PO SCH (09:30)
[2018-10-26] MEDS: GLUCOTROL PO SCH (09:31)
[2018-10-26] MEDS: PEPCID PO SCH (09:32)
[2018-10-26] MEDS: ELIQUIS PO SCH (09:32)
[2018-10-26] MEDS: SODIUM CHLORIDE FLUSH SYRINGE 10 ML IV SCH (09:41)
[2018-10-26] MEDS ORDERED: COREG PO SCH (10:00)
[2018-10-26] MEDS ORDERED: BUMEX PO SCH (10:00)
[2018-10-26] MEDS ORDERED: K-DUR PO SCH (10:00)
[2018-10-26] MEDS ORDERED: HALFPRIN EC PO SCH (10:00)
[2018-10-26] MEDS ORDERED: ZESTRIL PO SCH (10:00)
--- NOTE | 2018-10-26 10:37 | Progress Note ---
Assessment and Plan Acute systolic heart failure Hx of Nonischemic cardiomyopathy [facility] 02/2018 -no significant CAD, EF 20-25% Hx of PE -on eliquis for oral anticoagulation Hypertension Diabetes Continue medical therapy for systolic heart failure. Advised sodium/fluid restriction. Ok for discharge home today. Follow up with primary fire alarm mechanic as previously scheduled on . Subjective Date of service: 10/26/18 Interval history: Patient admits he is diuresing well. Sinus rhythm on telemetry. Objective Vital Signs Temp Pulse Pulse Pulse Pulse Pulse Resp 10/26/18 09:40 78 10/26/18 09:31 78 10/26/18 05:37 98.2 F 78 20 10/26/18 01:00 97.6 F 77 20 10/25/18 20:31 80 10/25/18 20:28 98.1 F 81 22 10/25/18 17:15 97.9 F 70 20 10/25/18 12:53 80 79 80 80 20 10/25/18 12:32 97.8 F 71 19 BP BP Pulse Ox 10/26/18 09:40 121/78 10/26/18 09:31 121/78 10/26/18 05:37 121/78 100 10/26/18 01:00 107/70 97 10/25/18 20:31 10/25/18 20:28 135/85 98 10/25/18 17:15 133/80 98 10/25/18 12:53 99 10/25/18 12:32 122/77 98 - Physical Examination General: No Apparent Distress HEENT: Positive: PERRL Neck: Positive: trachea midline Cardiac: Positive: Reg Rate and Rhythm Lungs: Positive: Decreased Breath Sounds Neuro: Positive: Grossly Intact Extremities: Present: +3 Edema - Labs and Meds Comprehensive Metabolic Panel 10/26/18 Range/Units 04:41 Sodium 143 (137-145) mmol/L Potassium 4.0 (3.6-5.0) mmol/L Chloride 101.7 (98-107) mmol/L Carbon Dioxide 28 (22-30) mmol/L BUN 20 (9-20) mg/dL Creatinine 1.6 H (0.8-1.5) mg/dL Glucose 59 L (75-100) mg/dL Calcium 8.4 (8.4-10.2) mg/dL
--- NOTE | 2018-10-26 12:43 | Discharge Summary ---
Providers - Providers Date of Admission: 10/23/18 16:13 Date of discharge: 10/26/18 Attending physician: VERONICA NG MD 10/23/18 22:58 Consult to Physician [CONS] Routine Comment: Consulting Provider: GISELL CAMARA Physician Instructions: Reason For Exam: CHF exac Primary care physician: TANKAGE SUPERVISOR Hospitalization Reason for admission: Acute on chronic CHF exacerbation, HTN Condition: Stable Hospital course: 73-year-old male with history of hypertension type 2 diabetes and congestive heart failure sent from Dr. Constantino's office for evaluation of increasing shortness of breath and cough for the last 3 days. Patient also has bilateral lower extremity swelling. No chest pain. Patient has class IV NYHA symptoms. Patient also has orthopnea. Exercise is exacerbating factor and rest is a relieving factor. No recent travel. No fever or chills.Also complaints of palpitations .No chest pain. patient was admitted to the floor and was treated appropriately for CHF exacerbation. Patient's SOB resolved and Bilateral leg swelling showed improvement. Patient will see his steamboat pilot for possible ICD placement next week. patient was cleared by steamboat pilot for discharge. Patient was hemodynamically stable at the time of discharge. Disposition: DC-01 TO HOME OR SELFCARE Time spent for discharge: 32 minutes - Discharge Diagnoses (1) Acute exacerbation of CHF (congestive heart failure) Status: Acute Qualifiers: Heart failure type: combined systolic and diastolic Qualified Code(s): I50.43 - Acute on chronic combined systolic (congestive) and diastolic (congestive) heart failure (2) Shortness of breath Status: Acute (3) HTN (hypertension) Status: Chronic Qualifiers: Hypertension type: essential hypertension Qualified Code(s): I10 - Essential (primary) hypertension (4) T2DM (type 2 diabetes mellitus) Status: Chronic Qualifiers: Diabetes mellitus detention insulin use: without termite control technician use Diabetes mellitus complication status: without complication Qualified Code(s): E11.9 - Type 2 diabetes mellitus without complications (5) Personal history of DVT (deep vein thrombosis) Status: Chronic Core Measure Documentation - Palliative Care Palliative Care/ Comfort Measures: Not Applicable - Core Measures Any of the following diagnoses?: heart failure - Heart Failure Discharge Requirements JOSE/ARB for LVSD if EF <40%: Yes Beta jam at discharge: Yes Exam - Physical Exam Narrative exam: Not in cardiopulmonary distress. The patient appeared well nourished and normally developed. Vital signs as documented. Head exam is unremarkable. No scleral icterus . Neck is without jugular venous distension, thyromegaly, or carotid bruits. Lungs are clear to auscultation. Cardiac exam reveals regular rate and Rhythm. First and second heart sounds normal. No murmurs, rubs or gallops. Abdominal exam reveals normal bowel sounds, no masses, no organomegaly and no aortic enlargement. Extremities +1 pedal and pretibial edema extending to the knee. 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 No focal weakness. - Constitutional Vitals: Temp Pulse Resp BP Pulse Ox 97.3 F L 78 24 121/78 98 10/26/18 08:34 10/26/18 09:40 10/26/18 08:34 10/26/18 09:40 10/26/18 08:34 Plan Activity: no restrictions Weight Bearing Status: Full Weight Bearing Diet: low cholesterol, low salt, diabetic Follow up with: PRIMARY CARE, [Primary Care Provider] - 7 Days Prescriptions: Carvedilol [Coreg] 3.125 mg PO BID #60 tablet
--- NOTE | 2018-10-26 13:19 | Progress Note ---
Assessment and Plan Acute systolic heart failure Hx of Nonischemic cardiomyopathy [facility] 02/2018 -no significant CAD, EF 20-25% Hx of PE - on eliquis for oral anticoagulation Hypertension Diabetes Continue medical therapy for systolic heart failure. Advised sodium/fluid restriction. Change IV lasix to po Bumex Start po coreg and lisinopril Outpatient follow-up in 1 week Subjective Date of service: 10/26/18 Principal diagnosis: CHF Interval history: Patient is doing better He denies chest pain or shortness of breath Tele is showing NSVT - but patient is not on GDMT Objective Vital Signs Temp Pulse Resp BP BP Pulse Ox 10/26/18 09:40 78 121/78 10/26/18 09:31 78 121/78 10/26/18 08:34 97.3 F L 84 24 132/77 98 10/26/18 05:37 98.2 F 78 20 121/78 100 10/26/18 01:00 97.6 F 77 20 107/70 97 10/25/18 20:31 80 10/25/18 20:28 98.1 F 81 22 135/85 98 10/25/18 17:15 97.9 F 70 20 133/80 98 - Physical Examination General: No Apparent Distress HEENT: Positive: PERRL Neck: Positive: trachea midline Cardiac: Positive: Reg Rate and Rhythm Lungs: Positive: Normal Exam Neuro: Positive: Grossly Intact Extremities: Present: +3 Edema - Labs and Meds Comprehensive Metabolic Panel 10/26/18 Range/Units 04:41 Sodium 143 (137-145) mmol/L Potassium 4.0 (3.6-5.0) mmol/L Chloride 101.7 (98-107) mmol/L Carbon Dioxide 28 (22-30) mmol/L BUN 20 (9-20) mg/dL Creatinine 1.6 H (0.8-1.5) mg/dL Glucose 59 L (75-100) mg/dL Calcium 8.4 (8.4-10.2) mg/dL - Imaging and Cardiology EKG: report reviewed (NSR 76/min)
== END 2018-10-26 16:00 | disposition home or self-care (01) | DRG 293 ==
LOC: ED 13:47 → 4A 16:13
PROVIDERS: ADMIT Internal Medicine; ATTEND Internal Medicine
DX: I11.0 Hypertensive heart disease with heart failure (principal); I50.43 Acute on chronic combined systolic (congestive) and diastolic (congestive) heart failure; I42.9 Cardiomyopathy, unspecified; E11.9 Type 2 diabetes mellitus without complications; Z86.718 Personal history of other venous thrombosis and embolism; Z79.01 Long term (current) use of anticoagulants; Z86.711 Personal history of pulmonary embolism; Z82.49 Family history of ischemic heart disease and other diseases of the circulatory system; Z79.84 Long term (current) use of oral hypoglycemic drugs; Z79.82 Long term (current) use of aspirin
CPT/HCPCS: 36415; 71045; 80048; 80053; 80061; 82043; 82962; 83036; 83880; 84484; 85025; 93005; 93010; 96374; G0378; A9270-GY; J1815; J1940